=== PATIENT | female | born 1990 | race Caucasian/White ===

== ENCOUNTER 2020-10-25 17:27 | Emergency (ER) | payer SELFPAY ==
[2020-10-25] MEDS ORDERED: PROAIR HFA IN (17:53)
[2020-10-25] MEDS ORDERED: VENTOLIN HFA IN (18:32)
[2020-10-25] MEDS ORDERED: PREDNISONE20 MG PO (18:32)
[2020-10-25 18:46] VITALS: BP 126/67
== END 2020-10-25 18:47 | disposition home or self-care (01) | DRG 203 ==
LOC: ED 17:27
DX: J45.901 Unspecified asthma with (acute) exacerbation (principal); Z20.828 Contact with and (suspected) exposure to other viral communicable diseases